=== PATIENT | female | born 1960 | race Caucasian/White ===

== ENCOUNTER 2016-10-28 12:11 | Inpatient (IN) | payer OTHER ==
[~2016-10-28] VITALS: Ht 167.6 cm; Wt 117.9 kg
[2016-10-28 12:56] LABS: BASOPHIL % 0.7 % (0-2); PLATELET COUNT 298 x10^3mcL (130-400); RED CELL DISTRIBUTION WIDTH 13.6 % (11.5-14.5)
[2016-10-28 13:01] LABS: microscopic required? NO
[2016-10-28 13:17] LABS: CALCIUM 8.9 mg/dL (8.5-10.1); CARBON DIOXIDE 27.1 mmol/L (21-32); CREATININE SERUM 1.3 mg/dL (0.6-1.0); POTASSIUM SERUM 3.9 mmol/L (3.5-5.1)
[2016-10-28 13:28] LABS: BILIRUBIN TOTAL 0.78 mg/dL (0.20-1.00)
[2016-10-28 13:29] LABS: ALBUMIN 2.9 g/dL (3.4-5.0)
[2016-10-28] MEDS ORDERED: TRAMADOL HCL50 MG PO (13:39)
[2016-10-28] MEDS ORDERED: CLARITIN10 MG PO (13:40)
[2016-10-28] MEDS ORDERED: CYMBALTA30 M1 PO (13:40)
[2016-10-28] MEDS ORDERED: CARVEDILOL3.125 M1 PO (13:40)
[2016-10-28] MEDS ORDERED: PENTOXIFYL XR400 M1 PO (13:40)
[2016-10-28] MEDS ORDERED: LANTUS SOLOS100 U/M1 SQ (13:41)
[2016-10-28] MEDS ORDERED: ENALAPRIL MALEA20 MG PO (13:41)
[2016-10-28] MEDS ORDERED: HUMALOG100 U/ML SC (13:41)
[2016-10-28] MEDS ORDERED: HYDROCHLOROTHIA25 MG PO (13:41)
[2016-10-28 13:54] LABS: UA SPECIFIC GRAVITY 1.015 (1.005-1.035); urine erythrocyte NEGATIVE (NEGATIVE)
[2016-10-28 14:34] VITALS: BP 131/58
[2016-10-28 14:46] VITALS: BP 131/58
[2016-10-28 15:16] LABS: FREE T4 1.19 ng/dL (0.76-1.46); FREE THYROXINE INDEX 3.4 ug/dL (1.4-4.5); T4(THYROXINE) 8.9 ug/dL (4.7-13.3)
[2016-10-28 15:18] LABS: T3 TOTAL 0.92 ng/mL
[2016-10-28 15:21] LABS: AMPHETAMINE QUAL UR NONE DETECTED (NEG <=1000)
[2016-10-28 16:51] VITALS: BP 117/55
[2016-10-28 20:41] VITALS: BP 90/34
[2016-10-29 05:53] VITALS: BP 109/43
[2016-10-29 07:09] LABS: BASOPHIL % 0.4 % (0-2); PLATELET COUNT 251 x10^3mcL (130-400); RED CELL DISTRIBUTION WIDTH 14.3 % (11.5-14.5)
[2016-10-29 07:24] LABS: CALCIUM 7.6 mg/dL (8.5-10.1); CARBON DIOXIDE 27.3 mmol/L (21-32); CHLORIDE SERUM 106 mmol/L (98-107); CHOLESTEROL 141 mg/dL (<200); CHOLESTEROL/HDL RATIO 3.5; GFR1 > 60 mL/min; GLUCOSE SERUM 149 mg/dL (74-106); HDL CHOLESTEROL 40 mg/dL (40-60); PHOSPHOROUS 3.8 mg/dL (2.5-4.9); POTASSIUM SERUM 3.6 mmol/L (3.5-5.1); SODIUM SERUM 139 mmol/L (136-145); TRIGLYCERIDES 184 mg/dL (<150)
[2016-10-29 09:36] VITALS: BP 139/50
[2016-10-29 14:21] VITALS: BP 138/68
[2016-10-29 17:33] VITALS: BP 146/65
== END 2016-10-29 18:27 | disposition expired | DRG 853 ==
LOC: ED 12:11 → DU 13:49
PROVIDERS: Emergency Medicine; ADMIT Family Medicine
PROC: 0HBMXZZ Excision of Right Foot Skin, External Approach (ICD-10-PCS; principal; 2016-10-28)
PROC: 0HBNXZZ Excision of Left Foot Skin, External Approach (ICD-10-PCS; principal; 2016-10-28)
PROC: 5A12012 Performance of Cardiac Output, Single, Manual (ICD-10-PCS; 2016-10-29)
PROC: 0BH17EZ Insertion of Endotracheal Airway into Trachea, Via Natural or Artificial Opening (ICD-10-PCS; 2016-10-29)
DX: A41.9 Sepsis, unspecified organism (principal); N17.0 Acute kidney failure with tubular necrosis; E44.0 Moderate protein-calorie malnutrition; Z68.42 Body mass index [BMI] 45.0-49.9, adult; L97.429 Non-pressure chronic ulcer of left heel and midfoot with unspecified severity; R65.20 Severe sepsis without septic shock; K52.9 Noninfective gastroenteritis and colitis, unspecified; E11.42 Type 2 diabetes mellitus with diabetic polyneuropathy; E11.65 Type 2 diabetes mellitus with hyperglycemia; E11.621 Type 2 diabetes mellitus with foot ulcer; L97.511 Non-pressure chronic ulcer of other part of right foot limited to breakdown of skin; L97.521 Non-pressure chronic ulcer of other part of left foot limited to breakdown of skin; E11.51 Type 2 diabetes mellitus with diabetic peripheral angiopathy without gangrene; T38.3X6A Underdosing of insulin and oral hypoglycemic [antidiabetic] drugs, initial encounter; I10 Essential (primary) hypertension; E86.0 Dehydration; E03.9 Hypothyroidism, unspecified; E78.5 Hyperlipidemia, unspecified; E66.9 Obesity, unspecified; Y92.009 Unspecified place in unspecified non-institutional (private) residence as the place of occurrence of the external cause
CPT/HCPCS: 82962; 83880; 84439; 87046; 87046-59; A4628; J0171; J1815; J1885; J1956; J2270; J2405; J3490; J7030; Q0092